=== PATIENT | female | born 1985 | race American Indian/Alaskan Native ===

== ENCOUNTER 2016-05-17 07:54 | Emergency (ER) | payer OTHER, BC ==
[~2016-05-17] VITALS: Ht 157.5 cm; Wt 154.0 kg
[2016-05-17 08:02] VITALS: TEMP 36.4; O2SAT 96; Ht 157.5 cm; Wt 154.0 kg
[2016-05-17] MEDS ORDERED: PARO1TAB27 PO (08:28)
[2016-05-17] MEDS ORDERED: FLUT1INH PO (08:28)
[2016-05-17] MEDS ORDERED: VNTHFA/IN INH (08:28)
[2016-05-17] MEDS ORDERED: CLR10 PO (08:28)
[2016-05-17] MEDS ORDERED: MONT1TAB3 PO (08:28)
--- NOTE | 2016-05-17 08:42 | DIAGNOSTIC IMAGING REPORT ---
LEFT KNEE 3 VIEWS CLINICAL HISTORY: Left knee pain. Fall. FINDINGS: AP, crosstable lateral, and sunrise views of the left knee are compared to study dated 12/03/2012. The skeletal structures are well mineralized. There is an avulsion fracture identified along the medial patellar facet best seen on the sunrise view with overlying soft tissue edema and associated joint effusion. No additional fracture is seen. There is mild degenerative narrowing at the patellofemoral joint. The joint spaces of the medial and lateral compartments are preserved. There are small patellar enthesophytes. IMPRESSION: There is a small avulsion fracture from the medial patellar facet with overlying soft tissue edema and associated joint effusion. Electronically signed by: Landen Padilla M.D. 05/17/2016 8:40 AM Dictated Date/Time: 05/17/2016 8:34 AM
[2016-05-17] MEDS ORDERED: TRAM-10 PO (09:40)
[2016-05-17 09:50] VITALS: BP 155/99; PULSE 75
--- NOTE | 2016-05-17 17:33 | EMERGENCY ROOM VISIT NOTE ---
History First contact with patient: 08:02 Chief Complaint: KNEEPAIN Stated Complaint: FALL History of Present Illness The patient is a 30 year old female who presents to the Emergency Room via BLS ambulance with complaints of left knee pain. The patient reports that she was spreading salt on steps at work this morning and she slipped and fell. The patient does not know if she twisted her knee or if she fell on it. She reports that it felt like it dislocated and popped back in. She went into the store, and reports that this popping sensation happened an additional time when she tried to get up to move to the ambulance gurney. At the current time, she rates her discomfort a 4 out of 10. She denies any prior history of left knee problems except for mild osteoarthritis. She does not have an orthopedic surgeon. The patient currently denies any other injuries from her fall, including head injury, neck pain, back pain or other extremity injuries. Review of Systems 10 system review was performed and was negative except for pertinent positives and negatives as indicated in history of present illness Past Medical/Surgical History Medical Problems: (1) Anxiety (2) Asthma (3) Bronchitis (4) Depression (5) Seasonal allergies Surgical Problems: (1) History of tonsillectomy Family History FH: cancer FH: diabetes mellitus FH: hypertension FH: seizures Social History Smoking Status: Current Some Day Smoker Alcohol Use: occasionally Marital Status: single Housing Status: lives with family Occupation Status: employed Current/Historical Medications Scheduled Fluticasone Furoate-Vilanterol (Breo Ellipta), 1 PUFF PO QAM Loratadine (Claritin), 10 MG PO QAM Montelukast Sodium (Singulair), 10 MG PO QAM Paroxetine (Paxil), 20 MG PO QAM Scheduled PRN Albuterol Hfa (Ventolin Hfa), 2-4 PUFFS INH Q6H PRN for Shortness of Breath Tramadol (Ultram), 1-2 TAB PO Q4H PRN for Pain Allergies Coded Allergies: No Known Allergies (Unverified , 05/17/16) Physical Exam Vital Signs Date Time Temp Pulse Resp B/P Pulse Ox O2 Delivery O2 Flow Rate FiO2 05/17/16 09:50 75 20 155/99 05/17/16 08:02 36.4 73 18 160/139 96 Room Air Physical Exam CONSTITUTIONAL: Obese female, alert and oriented X 3 with positive affect. Patient does not appear in any acute distress on exam. HEENT: Normocephalic, atraumatic. Pupils equal, round and reactive. NECK: Full active range of motion without discomfort. MUSCULOSKELETAL: Examination of the left knee does not show any abrasions, erythema, ecchymosis or deformities. The patient has minimal tenderness to palpation of the superior patellar margin. No joint effusion appreciated. No tenderness to palpation over the joint lines. Pedal pulses are intact. INTEGUMENTARY: No rash or other significant dermatologic conditions noted. NEUROLOGIC: No focal neurologic deficits noted. Left lower extremity is sensory intact. Medical Decision & Procedures ER Provider Diagnostic Interpretation: My interpretation of left knee x-rays shows a small avulsion fracture over the medial facet of the patella. Joint effusion is also noted. No patellar dislocation or other fractures noted. Radiologist report is as follows: LEFT KNEE 3 VIEWS CLINICAL HISTORY: Left knee pain. Fall. FINDINGS: AP, crosstable lateral, and sunrise views of the left knee are compared to study dated 12/03/2012. The skeletal structures are well mineralized. There is an avulsion fracture identified along the medial patellar facet best seen on the sunrise view with overlying soft tissue edema and associated joint effusion. No additional fracture is seen. There is mild degenerative narrowing at the patellofemoral joint. The joint spaces of the medial and lateral compartments are preserved. There are small patellar enthesophytes. IMPRESSION: There is a small avulsion fracture from the medial patellar facet with overlying soft tissue edema and associated joint effusion. ED Course Patient history and physical exam were performed. Nurse's notes were reviewed. The patient refused any analgesics on initial exam. X-rays of the left knee shows a small avulsion fracture over the medial patellar margin. After the patient returned from x-ray, I did discuss immobilization and limited weightbearing until she can follow up with orthopedics. Unfortunately her thigh was too big, and leg too short for our smallest knee immobilizer. An Yaakov wrap was then applied. The patient also reports that she does not feel safe using crutches, therefore a walker was dispensed. The patient was instructed to follow-up with her Worker's Compensation approved orthopedic surgeon for further reevaluation and management. While attempting to discharge the patient, when she stood up, she had a recurrent lateral patellar dislocation. This was reduced by extending the knee and providing medial counterforce against the patella. The patella was held in place until the patient could be repositioned from her wheelchair and back to the bed. At this point, an Ortho-Glass medial and lateral supporting splint with Yaakov wrapping was applied. The patient was then able to ambulate without any recurrent patellar dislocation. The patient was provided an ice pack and prescription for Ultram as needed for pain. The patient was happy with plan of care, voiced understanding of all discharge instructions, and rated her pain a 3 out of 10 at the conclusion of my exam. Impression Primary Impression: Dislocation of patella, left, closed Additional Impressions: Left patella fracture Fall due to slipping on ice or snow Work related injury Departure Information Prescriptions Tramadol (Ultram) 50 Mg Tab 1-2 TAB PO Q4H Y for Pain, #20 TAB For Initial Treatment Prov: Lemuel Rodriguez PA 05/17/16 Referrals Rell Enriquez M.D. (PCP) Patient Instructions My [facility] Problem Qualifiers Primary Impression: Dislocation of patella, left, closed Encounter type: initial encounter Qualified Codes: S83.005A - Unspecified dislocation of left patella, initial encounter Additional Impressions: Left patella fracture Encounter type: initial encounter Fracture type: closed Fracture morphology : other fracture Qualified Codes: S82.092A - Other fracture of left patella, initial encounter for closed fracture Fall due to slipping on ice or snow Encounter type: initial encounter Qualified Codes: W00.9XXA - Unspecified fall due to ice and snow, initial encounter
== END 2016-05-17 10:15 | disposition home or self-care (01) ==
LOC: EDBD 07:54 → C.EDB 07:57
DX: S82.092A Other fracture of left patella, initial encounter for closed fracture (principal); W00.0XXA Fall on same level due to ice and snow, initial encounter; Y99.0 Civilian activity done for income or pay; F17.200 Nicotine dependence, unspecified, uncomplicated; J45.909 Unspecified asthma, uncomplicated